=== PATIENT | female | born 1965 | race Caucasian/White ===

== ENCOUNTER 2018-06-22 11:26 | Emergency (ER) | payer SELFPAY | END 2018-06-22 12:50 | disposition home or self-care (01) | LOC: M ED 11:26 | DX: S60.221A Contusion of right hand, initial encounter (principal); W22.09XA Striking against other stationary object, initial encounter; Y92.009 Unspecified place in unspecified non-institutional (private) residence as the place of occurrence of the external cause; Y93.89 Activity, other specified; J45.909 Unspecified asthma, uncomplicated | CPT/HCPCS: 73130 ==